=== PATIENT | male | born 1955 | race Caucasian/White ===

== ENCOUNTER 2023-09-30 16:31 | Emergency (ER) | payer MEDICARE, MEDICAID ==
[~2023-09-30] VITALS: Ht 170.2 cm; Wt 96.4 kg
[2023-09-30 17:18] LABS: BASO % 0.4 % (0.0-1.0); EOS # 0.1 10^3/uL (0.0-0.5); EOS % 0.6 % (0.0-3.0); HEMATOCRIT 46.6 % (42.0-52.0); HEMOGLOBIN 15.7 g/dl (13.5-17.5); LYMPH # 4.2 10^3/uL (1.5-5.0); LYMPH % 43.3 % (24.0-44.0); MEAN CORPUSCULAR HEMOGLOBIN 29.6 pg (27.0-33.0); MEAN CORPUSCULAR HGB CONC 33.7 g/dl (32.0-36.5); MEAN CORPUSCULAR VOLUME 87.8 fl (80.0-96.0); MONO # 0.8 10^3/uL (0.0-0.8); MONO % 8.5 % (2.0-8.0); NEUTROPHILS # 4.5 10^3/uL (1.5-8.5); NEUTROPHILS % 46.4 % (36.0-66.0); PLATELET COUNT, AUTOMATED 249 10^3/uL (150-450); RED BLOOD COUNT 5.31 10^6/uL (4.30-6.10); WHITE BLOOD COUNT 9.6 10^3/uL (4.0-10.0)
[2023-09-30 17:33] LABS: INR 1.06; PROTHROMBIN TIME 13.5 SECONDS (12.5-14.5)
[2023-09-30 17:34] LABS: PARTIAL THROMBOPLASTIN TIME 26.4 SECONDS (24.8-34.2)
[2023-09-30 17:42] LABS: ALBUMIN 3.6 G/DL (3.2-5.2); ALKALINE PHOSPHATASE 90 U/L (46-116); ALT/SGPT 47 U/L (7.0-40); AST/SGOT 22 U/L (<34); BILIRUBIN,DIRECT 0.2 MG/DL (<0.4); BILIRUBIN,TOTAL 0.6 MG/DL (0.3-1.2); BLOOD UREA NITROGEN 19 MG/DL (9-23); CALCIUM LEVEL 9.7 MG/DL (8.3-10.6); CARBON DIOXIDE LEVEL 27 MMOL/L (20-31); CHLORIDE LEVEL 97 MMOL/L (98-107); CK-MB VALUE MASS < 1.0 NG/ML (<3.6); GLOMERULAR FILTRATION RATE > 60.0 (>49); GLUCOSE, FASTING 380 MG/DL (74-106); SODIUM LEVEL 134 MMOL/L (136-145); TOTAL PROTEIN 7.4 G/DL (5.7-8.2)
[2023-09-30 17:44] LABS: FREE T4 1.23 NG/DL (0.89-1.76); THYROID STIMULATING HORMONE 1.366 uIU/ML (0.55-4.78)
[2023-09-30 17:48] LABS: CPK CREATINE PHOSPHOKINASE 36 U/L (46-171); MB/CK RELATIVE INDEX 2.77 (< OR =4)
[2023-09-30 18:15] VITALS: TEMP 98.8
[2023-09-30 18:46] VITALS: BP 119/86; O2SAT 96
[2023-09-30] MEDS ORDERED: MECLIZINE 25 MG TABLET PO ONE (18:50)
[2023-09-30] MEDS ORDERED: NS 500 ML IV ONE (18:50)
[2023-09-30] MEDS ORDERED: HumuLIN R (REGULAR) INSULIN (NovoLIN R) **100U/ML** PER UNIT IV ONE (19:05)
[2023-09-30] MEDS ORDERED: MECL-209 PO (20:54)
== END 2023-09-30 21:17 | disposition home or self-care (01) ==
LOC: M ED 16:31
DX: R42 Dizziness and giddiness (principal); E11.65 Type 2 diabetes mellitus with hyperglycemia; I48.91 Unspecified atrial fibrillation; I10 Essential (primary) hypertension; J44.9 Chronic obstructive pulmonary disease, unspecified; Z95.0 Presence of cardiac pacemaker; Z82.49 Family history of ischemic heart disease and other diseases of the circulatory system; R90.82 White matter disease, unspecified
CPT/HCPCS: 70450; 71046; 80048; 80076; 82550; 82553; 84439; 84443; 84484; 85025; 85610; 85730; 93005; 93041; 94760; 96361; 96374; 99285; J1815